=== PATIENT | female | born 1995 | race Caucasian/White ===

== ENCOUNTER 2021-01-18 20:04 | Observation (INO) | payer OTHER, SELFPAY ==
--- NOTE | 2021-01-18 20:04 | OBADM ---
This patient, Winnie Munoz, admitted to the OB room Labor/Delivery/Recovery 106 for observation. Patient/family oriented to hospital policies and general routines including ID bracelet, bed and alarms, visiting hours, pain management, procedures, bathroom and other care routines, personal items, smoking policy, room service/diet, and visiting hours. Patient/Family are encouraged to report perceived risks to care and to ask questions if they do not understand what they are told or what they should do.
[2021-01-18 21:34] VITALS: BMI 29.1
[2021-01-18] MEDS: ACETAMINOPHEN 500 MG TABLET 1000 MG PO (21:40)
--- NOTE | 2021-02-18 07:47 | PM.OBTRLD ---
OB - Triage/Final Diagnosis Visit Information Comments/Additional reasons for admission: I have assessed the risk for this patient, Winnie Munoz, and determined that she would benefit from observation care. Final Diagnosis (1) False labor: Code(s): O47.9 - False labor, unspecified Status: Acute
== END 2021-01-18 22:43 | disposition home or self-care (01) ==
PROVIDERS: Admitting Provider Obstetrics & Gynecology; Visit Provider Obstetrics & Gynecology
DX: O47.1 False labor at or after 37 completed weeks of gestation (principal); Z3A.37 37 weeks gestation of pregnancy
CPT/HCPCS: A9270; G0378; G0379

== ENCOUNTER 2021-01-21 14:20 | Observation (INO) | payer OTHER, SELFPAY ==
--- NOTE | 2021-01-21 14:20 | OBADM ---
This patient, Winnie Munoz, admitted to the OB room Labor/Delivery/Recovery 105 for observation. Patient/family oriented to hospital policies and general routines including ID bracelet, bed and alarms, visiting hours, pain management, procedures, bathroom and other care routines, personal items, smoking policy, room service/diet, and visiting hours. Patient/Family are encouraged to report perceived risks to care and to ask questions if they do not understand what they are told or what they should do.
[2021-01-21 14:34] VITALS: TEMP 36.8
[2021-01-21 14:40] VITALS: BMI 29.1
--- NOTE | 2021-01-25 00:07 | PM.OBTRLD ---
OB - Triage/Final Diagnosis Visit Information Reason for evaluation: threatened labor Comments/Additional reasons for admission: I have assessed the risk for this patient, Winnie Munoz, and determined that she would benefit from observation care.
== END 2021-01-21 16:23 | disposition home or self-care (01) ==
PROVIDERS: Admitting Provider Obstetrics & Gynecology Gynecology; Visit Provider Obstetrics & Gynecology Gynecology
DX: O47.1 False labor at or after 37 completed weeks of gestation (principal); Z3A.37 37 weeks gestation of pregnancy
CPT/HCPCS: G0378; G0379

== ENCOUNTER 2021-01-27 15:05 | Observation (INO) | payer OTHER, SELFPAY ==
--- NOTE | 2021-01-27 18:58 | OBADM ---
This patient, Winnie Munoz, admitted to the OB room Labor/Delivery/Recovery 104 for observation. Patient/family oriented to hospital policies and general routines including ID bracelet, bed and alarms, visiting hours, pain management, procedures, bathroom and other care routines, personal items, smoking policy, room service/diet, and visiting hours. Patient/Family are encouraged to report perceived risks to care and to ask questions if they do not understand what they are told or what they should do.
--- NOTE | 2021-02-04 10:00 | PM.OBTRLD ---
OB - Triage/Final Diagnosis Visit Information Reason for evaluation: threatened labor and other Comments/Additional reasons for admission: I have assessed the risk for this patient, Winnie Munoz, and determined that she would benefit from observation care.
== END 2021-01-27 16:25 | disposition home or self-care (01) ==
PROVIDERS: Admitting Provider Obstetrics & Gynecology Gynecology; Visit Provider Obstetrics & Gynecology Gynecology
DX: O47.9 False labor, unspecified (principal); Z3A.00 Weeks of gestation of pregnancy not specified
CPT/HCPCS: 84112; G0378; G0379

== ENCOUNTER 2021-02-01 06:13 | Inpatient (IN) | payer OTHER, SELFPAY ==
[2021-02-01] VITALS (64 sets, daily range): BP systolic 94–129; BP diastolic 51–112; PULSE 66–90; RESP 16–18; TEMP 36.1–36.9; O2SAT 99–100; BMI 29.2
[2021-02-01 06:56] LABS: Basophils Absolute Auto 0.1 K/mm3 (0.0-0.1); Basophils Percent Auto 0.5 % (0.2-1.2); Hematocrit 32.2 % (37.0-47.0); Hemoglobin 10.6 g/dL (12.0-15.0); Immature Granulocyte Percent A 3.4 % (0-0.5); Lymphocytes Absolute Auto 2.47 K/mm3 (0.9-3.2); Lymphocytes Percent Auto 21.3 % (18.3-44.2); Mean Corpuscular HGB Conc 32.9 g/dl (32-36); Mean Corpuscular Hemoglobin 29.9 pg (26-34); Mean Platelet Volume 10.8 fl (7.4-10.4); Monocytes Absolute Auto 0.8 K/mm3 (0.1-0.6); Monocytes Percent Auto 6.6 % (2.6-8.5); Neutrophils Absolute Auto 7.9 K/mm3 (1.3-6.7); Neutrophils Percent Auto 68.2 % (45.5-73.1); Platelet Count Result 229 k/mm3 (150-375); Red Blood Count 3.54 M/mm3 (4.2-5.4); Red Cell Distribution Width 14.8 % (11.5-14.5); White Blood Count 11.6 K/mm3 (4.5-10.0)
[2021-02-01] MEDS: LACTATED RINGERS 1,000 ML 125 ML IV CONT ×2 (07:22→09:09)
[2021-02-01] MEDS: OXYTOCIN 30 UNITS/NS 500 ML 30 UNITS/500 ML BAG IV CONT (07:23)
[2021-02-01] MEDS: ONDANSETRON INJ 4 MG/2 ML VIAL IV PUSH (07:27)
--- NOTE | 2021-02-01 07:39 | LDADM ---
This patient, Winnie Munoz, was admitted to Labor/Delivery/Recovery 103 on 02/01/21 at 06:13. Plans for labor, pain management and were discussed with patient. Patient/family oriented to hospital policies and general routines including ID bracelet, bed and alarms, visiting hours, pain management, procedures, bathroom and other care routines, personal items, smoking policy, room service/diet and guest tray routines, security routines, and visiting hours. Patient/Family are encouraged to report perceived risks to care and to ask questions if they do not understand what they are told or what they should do. See OBIX for further documentation.
--- NOTE | 2021-02-01 07:52 | P.HP_ITS ---
Obstetrics - Admit Note Admission Note: AROm clear /-2 vertex record reviewed. No pertinent additions to the history and/or any subsequent changes in the physical findings that are not consistent with the expected course of the were found. Additions to the history and/or subsequent changes in the physical findings flaquita man. None.
--- NOTE | 2021-02-01 13:07 | PM.OBPRVD ---
OB - Delivery Note Procedure Delivery date: 02/01/21 Procedure: events: Labor Induction Intrapartal events: None Induction method: AROM and per pitocin protocol Delivery monitor: external FHT Route of delivery: Laceration Description: None Specimen: No Quantitative Blood Loss (ml): 125 Anesthesia type: Epidural Disposition: floor Baby Date of : 02/01/21 Weeks of gestation at delivery: 39 Infant gender: Female presentation: vertex position: Right Occiput Anterior Placenta delivery description: Spontaneous cord vessel description: 3 Vessels and Nuchal Cord score one minute: 9 score five minutes: 9
--- NOTE | 2021-02-01 13:08 | PM.OBDSVD ---
DS: Admitting Diagnosis Admitting Diagnosis Admitting Diagnosis: 39 wks for LILY DS: Discharge Diagnosis Discharge Diagnosis (1) 39 weeks gestation of : Code(s): Z3A.39 - 39 weeks gestation of Status: Acute (2) (normal spontaneous vaginal delivery): Code(s): O80 - Encounter for full-term uncomplicated delivery Status: Acute OB - DS: Summary OB Procedures : Ultrasound OB Procedures Intrapartum: Spontaneous Vag Delivery OB Procedures: : None Peripartum Data Delivery Method: Natural Vaginal Laceration Description: None complications: none Status at Discharge Functional status at discharge: independent ambulation Overall status at discharge: patient is progressing back to baseline Time Spent with Patient Time attestation: Total time spent providing and/or coordinating discharge services: DS: Data Data Completed and Pending Labs on day of discharge: Labs from last 24 hours 02/01/21 02/01/21 02/01/21 06:49 06:49 06:49 WBC 11.6 H RBC 3.54 L Hgb 10.6 L Hct 32.2 L MCV 91.0 MCH 29.9 MCHC 32.9 RDW 14.8 H Plt Count 229 MPV 10.8 H Immature Gran % (Auto) 3.4 H Neut % (Auto) 68.2 Lymph % (Auto) 21.3 [place] % (Auto) 6.6 Eos % (Auto) 0.0 Baso % (Auto) 0.5 Lymph # (Auto) 2.47 [place] # (Auto) 0.8 H Eos # (Auto) 0.0 Baso # (Auto) 0.1 Abs Immat Gran (auto) 0.40 H Absolute Neuts (auto) 7.9 H Absolute Nucleated RBC 0.0 Nucleated RBC % 0.0 RPR Pending Blood Type A Positive Antibody Screen Negative Discharge Plan Discharge Attending physician on discharge: Keyana Lutz Discharging Clinician: Aries Horner Anticipated Discharge Date/Time: 02/03/21 13:09 Patient Disposition: Home, Self-Care Activity: may shower and pelvic rest Diet: regular Discharge Instructions: Education: Mom and Baby Guide Given to: Mother Follow-Up: Call your delivering provider's office for an appointment to be seen in: 6 Weeks Mom and baby should come to the [facility] for the follow-up appointment. Appointment Date/Time: February 04, 2021 at 9:00 am What to expect at your follow-up visit: Physical Assessment Call [phone] if you are unable to keep your appointment time. BREAST CARE: * Wear a snug supportive bra. * For engorgement discomfort: Breast Feeding: * Apply warm moist washcloths * Express milk as needed to relieve engorgement * Wear loose clothing * For sore nipples: * Identify correct latch-on * Apply warm moist washcloths before and after nursing * Air dry nipples after nursing * May apply Lansinoh cream to nipples EPISIOTOMY/PERINEAL CARE: * Until bleeding stops, use your marvin bottle after urinating * Change your pad frequently throughout the day * No tub baths until seen by your physician - You may shower ACTIVITY: * Rest as much as possible. * Do not exercise or lift anything heavier than your baby (such as laundry or other children.) * Avoid stairs or driving as much as possible. * Do not put anything into the vagina. No douching, tampons, or sexual activity until seen by physician. NOTIFY PHYSICIAN IF YOU HAVE ANY QUESTIONS OR IF ANY OF THE FOLLOWING SYMPTOMS OCCUR: * If your perineum becomes red, swollen, or more painful than what you have experienced in the hospital. * If your vaginal bleeding becomes foul smelling. * If your vaginal bleeding becomes more heavy than a period or if your bleeding changes from pink to bright red. However, you may pass an occasional walnut-sized clot once or twice for the first week . * If you experience a sharp, shooting pain in you calves. * If you discover a hard, reddened area on your breast or if you experience flu-like symptoms. DIET: * Eat regular, well-balance
[2021-02-01] MEDS: OXYTOCIN 30 UNITS/NS 500 ML 30 UNITS/500 ML BAG 125 UNITS IV CONT (13:35)
[2021-02-01 14:14] LABS: Rapid Plasma Reagin Non-Reactive (NonReactive)
[2021-02-01] MEDS: ACETAMINOPHEN 325 MG TABLET 650 MG PO (19:36)
[2021-02-02] VITALS: BP 118/56; PULSE 74; RESP 16; TEMP 36.9; O2SAT 100
[2021-02-02] MEDS: ACETAMINOPHEN 325 MG TABLET 650 MG PO (03:29)
[2021-02-02 04:00] VITALS: BP 110/74; PULSE 66; RESP 16; TEMP 36.6; O2SAT 99
[2021-02-02 05:32] LABS: Hematocrit 32.2 % (37.0-47.0); Hemoglobin 10.2 g/dL (12.0-15.0)
--- NOTE | 2021-02-02 07:32 | WPDANLDPN2 ---
Anes-Prog Note L&D Date/Time: 02/02/21 07:32 Comfortable throughout: labor and delivery Neuraxial method: epidural Epidural/Spinal procedure site: clean & non-tender Neuro status: Neuro function grossly intact. Cardiovascular status: normal Respiratory status: normal Airway patency: baseline Mental status: baseline Post-Op hydration status: normal Vital Signs: Last Vital Signs Temp 36.6 C 02/02/21 04:00 Pulse 66 02/02/21 04:00 Resp 16 02/02/21 04:00 BP 110/74 02/02/21 04:00 Pulse Ox 99 02/02/21 04:00 Pain score (VAS): 2 I/O: Intake & Output 02/01/21 02/01/21 02/02/21 15:59 23:59 07:59 Intake Total 1500 500 Balance 1500 500 Post-procedural complaints: none Patient feedback: Patient satisfied with anesthetic care.
[2021-02-02 07:45] VITALS: BP 109/65; PULSE 74; RESP 18; TEMP 36.6; O2SAT 100
[2021-02-02] MEDS: IBUPROFEN 600 MG TABLET PO (08:08)
[2021-02-02] MEDS: MULTIVIT/MIN/PREN/FOL AC/IRON TABLET 1 TAB PO (08:09)
--- NOTE | 2021-02-02 09:55 | PM.OBPNVD ---
OB - PN: Subj Subjective Date/time seen: 02/02/21 09:55 desires home today no complaints OB - PN: Obj Data Labs CBC & Chem 7: 02/02/21 03:36 Labs: Laboratory Results - last 24 hr 02/01/21 02/02/21 06:49 03:36 Hgb 10.2 L Hct 32.2 L RPR Non-reactive OB - PN A/P Assessment and Plan (1) (normal spontaneous vaginal delivery): Code(s): O80 - Encounter for full-term uncomplicated delivery Status: Acute Assessment and Plan: d/c home Time Spent With Patient Time: Total time spent is greater than 50% in coordination of care (as documented) at patient's floor/unit and/or counseling patient: Exam Narrative: Exam Narrative: ff below umbilicus
[2021-02-02 12:15] VITALS: BP 114/70; PULSE 65; RESP 18; TEMP 36.6; O2SAT 99
--- NOTE | 2021-02-02 12:34 | PC.NURSE ---
Patient instructed on viewing the discharge video Mother & Baby Care, The First Two Weeks . Patient was given the opportunity and encouraged to ask questions. Patient verbalized understanding of information shared and has been given the mother/baby guide for home reference.
[2021-02-04 09:00] VITALS: BP 123/79; PULSE 66; RESP 16; TEMP 37.1; O2SAT 99
== END 2021-02-02 15:09 | disposition home or self-care (01) | DRG 560 ==
LOC: ANHLDR 02-05 09:17 → ANHOB2 02-05 09:17
PROVIDERS: Admitting Provider Obstetrics & Gynecology Gynecology; Visit Provider Obstetrics & Gynecology
DX: O69.81X0 Labor and delivery complicated by cord around neck, without compression, not applicable or unspecified (principal); Z3A.39 39 weeks gestation of pregnancy; Z37.0 Single live birth
CPT/HCPCS: 36415; 85014; 85018; 85025; 86592; 86850; 86900; 86901; A9270; J2405; J2590; J2795; J7120